=== PATIENT | male | born 1960 | race American Indian/Alaskan Native ===

== ENCOUNTER 2017-09-06 12:08 | Emergency (ER) | payer MEDICARE ==
[2017-09-06 13:08] VITALS: BP 116/63
[2017-09-06] MEDS ORDERED: DECADRON IM ONE (14:05)
[2017-09-06] MEDS ORDERED: PEPCID PO ONE (14:05)
[2017-09-06] MEDS ORDERED: BENADRYL PO ONE (14:05)
[2017-09-06] MEDS ORDERED: PERCOCET 5/325 PO ONE (14:06)
--- NOTE | 2017-09-06 14:47 | Emergency Department Report ---
ED Rash HPI - HPI Chief Complaint: Skin Rash Stated Complaint: BACK PAIN, BED BUGS Duration: 2 Days Location: Chest, Back, Abdomen, Upper Extremities, Lower Extremities Suspected Cause: Insect Rash Symptoms: Yes Itching, No Facial Swelling, No Tongue/Oral Swelling, No Breathing Difficulties, No Choking Sensation, No Wheezing/Dyspnea, No Peeling, No Blistering, No Fever, No Lightheaded, No Malaise, No Myalgias Severity: mild Other History: 56 year old male presents to ED with itching and bed bugs rash x1 -2 days. patient states he moved into a new place of residence yesterday and began itching. patient also states he has chronic lower back pain and normally takes percocet and states he would like a RX for percocet today. patient denies recent injury/trauma to back, urinary incontinence, saddle anesthesia or fevers. patient states this is same chronic back pain since 2002. patient is stable, neurologically intact and in no acute distress. ED Review of Systems ROS: Stated complaint: BACK PAIN, BED BUGS Other details as noted in HPI Constitutional: denies: chills, fever Eyes: denies: eye pain, eye discharge, vision change ENT: denies: ear pain, throat pain Respiratory: denies: cough, shortness of breath, wheezing Cardiovascular: denies: chest pain, palpitations Endocrine: no symptoms reported Gastrointestinal: denies: abdominal pain, nausea, diarrhea Genitourinary: denies: urgency, dysuria, frequency, discharge Musculoskeletal: back pain. denies: joint swelling, arthralgia Skin: rash, pruritus. denies: lesions Neurological: denies: headache, weakness, numbness, paresthesias, confusion, abnormal gait, vertigo Psychiatric: denies: anxiety, depression Hematological/Lymphatic: denies: easy bleeding, easy bruising ED Past Medical Hx - Past Medical History Hx Hypertension: No Hx Diabetes: No Hx GERD: Yes Hx Arthritis: Yes Hx Seizures: No Hx Psychiatric Treatment: Yes (Depression, ETOH/Drug rehab, anxiety) Hx Asthma: No Additional medical history: depression, drug/etoh rehab, anxiety - Surgical History Additional Surgical History: back surgery, 2 hernia surgeries, neck surgery. RIGHT SHOULDER SURGERY. MRI of the lumbar spine - Social History Smoking Status: Current Every Day Smoker Substance Use Type: Alcohol - Medications Home Medications: Home Medications Medication Instructions Recorded Confirmed Last Taken Type Gabapentin [Neurontin] 400 mg PO QHS 09/30/15 09/30/15 Unknown History HYDROcodone/APAP 10-325 [[place] 1 each PO Q6HR PRN #10 tablet 09/30/15 Unknown Rx 10-325 mg TAB] Hydroxyzine HCl 25 mg PO BID #10 tablet 09/06/17 Unknown Rx Triamcinolone 0.1% [Kenalog 0.1% 1 applic TP TID #1 tube 09/06/17 Unknown Rx CREAM] Rash Exam - Exam General: Vital signs noted. No distress. Alert and acting appropriately. HEENT: No Periorbital Edema, No Conjuctival Injection, No Tongue Edema, No Compromised Airway Lungs: Yes Good Air Exchange, No Wheezes, No Stridor, No Cough, No Labored Respirations, No Retractions, No Use of Accessory Muscles Heart: Yes Regular Skin: Yes Maculopapular Rash (rash consistent with bed bugs), Yes Excoriations Other: Positive: Neurologic Normal, Musculoskeletal Normal (no tenderness to lower back on palpation/examination) ED Course Vital Signs 09/06/17 13:02 Temperature 98.6 F Pulse Rate 78 Respiratory 20 Rate Blood Pressure 116/63 O2 Sat by Pulse 97 Oximetry ED Medical Decision Making - Medical Decision Making 56 year old male presents to ED with rash consistent with bed bugs. patient also states he has chronic back pain and has requested RX for percocet. patient has been advised that he will not be receiving an RX for percocet. patient agrees and understands to follow up with pain management clinic for narcotics. patient will be given RX for pruritis from bed bugs. patient is stable, neurologically intact and in no acute distress. Critical care attestation.: If time is entered above; I have spent that time in minutes in the direct care of this critically ill patient, excluding procedure time. ED Disposition Clinical Impression: Bed bug bite Qualifiers: Encounter type: initial encounter Qualified Code(s): W57.XXXA - Bitten or stung by nonvenomous insect and other nonvenomous arthropods, initial encounter Disposition: TO HOME OR SELFCARE Is pt being admited?: No Does the pt Need Aspirin: No Condition: Stable Instructions: Insect Bite or Sting (ED) Prescriptions: Hydroxyzine HCl 25 mg PO BID #10 tablet Triamcinolone 0.1% [Kenalog 0.1% CREAM] 1 applic TP TID #1 tube Referrals: PRIMARY CARE,MD [Primary Care Provider] - 3-5 Days
== END 2017-09-06 14:54 | disposition home or self-care (01) ==
LOC: ED 12:08
DX: L29.9 Pruritus, unspecified (principal); R21 Rash and other nonspecific skin eruption; M54.5 Low back pain; W57.XXXA Bitten or stung by nonvenomous insect and other nonvenomous arthropods, initial encounter; Y93.89 Activity, other specified; Y92.89 Other specified places as the place of occurrence of the external cause; Y99.8 Other external cause status
CPT/HCPCS: 96372; 99282; J1100

== ENCOUNTER 2018-06-20 07:18 | Emergency (ER) | payer MEDICARE ==
[2018-06-20 08:41] LABS: Basophils % (Auto) 0.4 % (0.0-1.8); Eosinophils % (Auto) 0.2 % (0.0-4.3); Hematocrit 44.9 % (35.5-45.6); Hemoglobin 15.2 gm/dl (11.8-15.2); Lymphocytes % (Auto) 13.6 % (13.4-35.0); Mean Corpuscular HGB Conc 34 % (32-34); Mean Corpuscular Hemoglobin 31 pg (28-32); Mean Corpuscular Volume 90 fl (84-94); Monocytes # (Auto) 0.5 K/mm3 (0.0-0.8); Platelet Count 236 K/mm3 (140-440); Red Blood Count 4.97 M/mm3 (3.65-5.03); Red Cell Distribution Width 15.4 % (13.2-15.2)
[2018-06-20 08:57] LABS: BUN/Creatinine Ratio 16; Blood Urea Nitrogen 14 mg/dL (9-20); Calcium 9.4 mg/dL (8.4-10.2); Hemolysis Index 4
[2018-06-20 09:17] LABS: Bilirubin,Urine NEG (Negative); Blood,Urine SM (Negative); Color,Urine Yellow (Yellow); Mucus,Urine FEW /HPF
[2018-06-20 09:24] LABS: Amphetamine Screen,Urine PRESUMPTIVE NEGATIVE; Benzodiazepines Screen,Urine PRESUMPTIVE NEGATIVE; Cannabinoid Screen,Urine PRESUMPTIVE NEGATIVE; Methadone Screen,Urine PRESUMPTIVE NEGATIVE; Opiate Screen,Urine PRESUMPTIVE NEGATIVE
[2018-06-20 09:36] LABS: Cocaine Screen,Urine PRESUMPTIVE POSITIVE
[2018-06-20 11:47] VITALS: BP 111/72
--- NOTE | 2018-06-20 12:56 | Emergency Department Report ---
ED Psych HPI - General Chief Complaint: Psych Stated Complaint: DRUG/ALCOHOL Time Seen by Provider: 06/20/18 11:06 Source: patient, EMS Mode of arrival: Ambulatory - History of Present Illness Initial Comments: 57-year-old man with chronic history of cocaine and ethanol abuse, with prior evaluation for same as far back as 2013, reports that he has been active user for the past couple of years, although he has been in detox previously. He is not currently under treatment, has no routine health counselors, and has used crack cocaine by smoking as recently as last evening, 12 hours earlier, and drink alcohol, as many as 12 25 ounce bottles of beer in a day, with last drink 8 hours prior to arrival. He requests admission for detox. Symptoms are vague , but he appears to have chronic depression, reports feeling desperate, and reports feeling suicidal, but on further questioning, this appears to be a generalized sense of hopelessness over his current situation, patient has not actively made any plans and does not wish to at this time. He does report having a made attempts in the past, and it previously thought that he might jump in front of a train, but has not made any efforts or plans to do so at this time. Patient's past medical history significant for hypertension, above-mentioned substance abuse, with cocaine and alcohol, tobacco, but denies other recreational drugs, denies intravenous drug use, and he takes oxycodone for chronic back pain, for which she is disabled, but denies abusing medications, and takes his medicine as prescribed, under refills by pain customer manager on monthly basis. Review of prescription drug database confirms this. Other history significant for GERD. Patient's only other significant complaint is hunger, reporting that he has not had a steady meal in several days. - Related Data Home Medications Medication Instructions Recorded Confirmed Last Taken Gabapentin [Neurontin] 400 mg PO QHS 09/30/15 09/30/15 Unknown Previous Rx's Medication Instructions Recorded Last Taken Type HYDROcodone/APAP 10-325 [[place] 1 each PO Q6HR PRN #10 tablet 09/30/15 Unknown Rx 10-325 mg TAB] Triamcinolone 0.1% [Kenalog 0.1% 1 applic TP TID #1 tube 09/06/17 Unknown Rx CREAM] hydrOXYzine HCl [Hydroxyzine HCl] 25 mg PO BID #10 tablet 09/06/17 Unknown Rx Allergies Allergy/AdvReac Type Severity Reaction Status Date / Time No Known Allergies Allergy Verified 06/20/18 07:36 ED Review of Systems ROS: Stated complaint: DRUG/ALCOHOL Other details as noted in HPI Constitutional: denies: chills, diaphoresis, fever Eyes: denies: vision change ENT: denies: throat pain Respiratory: denies: cough, shortness of breath Cardiovascular: denies: chest pain Endocrine: increased hunger. denies: excessive sweating, flushing, intolerance to cold, increased thirst, increased urine Gastrointestinal: denies: abdominal pain, nausea, vomiting, diarrhea Genitourinary: denies: urgency, dysuria Musculoskeletal: back pain (chronic,lumbar back) Skin: denies: rash, lesions Neurological: denies: headache, weakness, numbness, paresthesias, confusion, abnormal gait, vertigo Psychiatric: anxiety, suicidal thoughts (reports to staff, but mostly depression and hopelessness over current situation on my questioning, no active suicidal thoughts, no plans, no actions; no homocidal ideation). denies: auditory hallucinations, visual hallucinations ED Past Medical Hx - Past Medical History Previous Medical History?: Yes Hx Hypertension: No Hx Diabetes: No Hx GERD: Yes Hx Arthritis: Yes Hx Seizures: No Hx Psychiatric Treatment: Yes (Depression, ETOH/Drug rehab, anxiety) Hx Asthma: No Additional medical history: depression, drug/etoh rehab, anxiety - Surgical History Past Surgical History?: Yes Additional Surgical History: back surgery, 2 hernia surgeries, neck surgery. RIGHT SHOULDER SURGERY. MRI of the lumbar spine - Social History Smoking Status: Current Every Day Smoker Substance Use Type: Alcohol, Cocaine - Medications Home Medications: Home Medications Medication Instructions Recorded Confirmed Last Taken Type Gabapentin [Neurontin] 400 mg PO QHS 09/30/15 09/30/15 Unknown History HYDROcodone/APAP 10-325 [[place] 1 each PO Q6HR PRN #10 tablet 09/30/15 Unknown Rx 10-325 mg TAB] Triamcinolone 0.1% [Kenalog 0.1% 1 applic TP TID #1 tube 09/06/17 Unknown Rx CREAM] hydrOXYzine HCl [Hydroxyzine HCl] 25 mg PO BID #10 tablet 09/06/17 Unknown Rx ED Physical Exam - General Limitations: No Limitations General appearance: alert, in no apparent distress, anxious - Eye Eye exam: Present: normal appearance, PERRL, EOMI (no nystagmus) - ENT ENT exam: Present: normal exam, mucous membranes dry - Neck Neck exam: Present: normal inspection, full ROM. Absent: tenderness - Respiratory Respiratory exam: Present: normal lung sounds bilaterally. Absent: respiratory distress, wheezes, rales, rhonchi - Cardiovascular Cardiovascular Exam: Present: regular rate, normal heart sounds - GI/Abdominal GI/Abdominal exam: Present: soft, normal bowel sounds. Absent: tenderness, guarding, rebound - Rectal Rectal exam: Present: deferred - Extremities Exam Extremities exam: Present: normal inspection, full ROM. Absent: tenderness - Back Exam Back exam: Present: tenderness (bilateral lumbar myofascial soft tissue, reports chronic/unchanged) - Neurological Exam Neurological exam: Present: alert, oriented X3, CN II-XII intact. Absent: motor sensory deficit - Psychiatric Psychiatric exam: Present: depressed, anxious, suicidal ideation (vague, doubtful on questioning, probably a generalized sign of depression) - Skin Skin exam: Present: warm, dry, intact ED Course Vital Signs 06/20/18 06/20/18 07:27 11:47 Temperature 36.8 C 36.5 C Pulse Rate 119 H 88 Respiratory 18 18 Rate Blood Pressure 134/85 Blood Pressure 111/72 [Left] O2 Sat by Pulse 96 99 Oximetry - Reevaluation(s) Reevaluation #1: 06/20/18 13:00 Stable examination, fed a meal, tolerated well, resting fairly comfortably, request medication for GERD Reevaluation #2: 06/20/18 13:55 Patient stable on recheck, feeling improved, neurologically intact, no tremor, no agitation, EKG and labs reviewed, these are negative despite incorrect computer reading of possible ST elevation, but this isn't his. His reading. Patient has no chest pain at this time, lungs are clear, heart is normal, he is neurologically stable, and no signs of instability from alcohol or cocaine withdrawal. He is stable for discharge to care of detox treatment at [facility], and I discussed findings with Elba. ED Medical Decision Making - Lab Data Result diagrams: 06/20/18 08:21 06/20/18 08:21 - EKG Data -: EKG Interpreted by Me EKG shows normal: sinus rhythm (101 bpm), axis (normal QRS axis, 71), intervals (normal RI interval, normal QRS interval, QT interval normal at 439 ms corrected.), QRS complexes (normal), ST-T waves (normal ST segments, incorrectly interpreted by computer as anterior injury and elevation, but I disagree, and this is unchanged from previous tracing. 09/30/2015 tracing) Rate: tachycardia (borderline) - EKG Data When compared to previous EKG there are: no significant change - Medical Decision Making Patient is requesting detox, last drink was 8 hours, alcohol is negative, patient is positive for cocaine, laboratory evaluation physical examination are both stable, and patient may be discharged for admission into detox. Critical Care Time: No Critical care attestation.: If time is entered above; I have spent that time in minutes in the direct care of this critically ill patient, excluding procedure time. ED Disposition Clinical Impression: Alcohol abuse, Cocaine abuse Disposition: DC-01 TO HOME OR SELFCARE Is pt being admited?: No Does the pt Need Aspirin: No Condition: Stable Additional Instructions: You are stable for discharge, and you are being discharged from the emergency facility, and will be admitted from [facility] for [facility]. Referrals: PRIMARY CAREMD [Primary Care Provider] - 3-5 Days Time of Disposition: 13:58
== END 2018-06-20 16:53 | disposition home or self-care (01) ==
LOC: ED 07:18
DX: F14.10 Cocaine abuse, uncomplicated (principal); F10.10 Alcohol abuse, uncomplicated; K21.9 Gastro-esophageal reflux disease without esophagitis; M19.90 Unspecified osteoarthritis, unspecified site; F32.9 Major depressive disorder, single episode, unspecified; F41.9 Anxiety disorder, unspecified; F17.200 Nicotine dependence, unspecified, uncomplicated
CPT/HCPCS: 36415; 80048; 80307; 81001; 85025; 93005; 93010; 99284; G0480; 80320

== ENCOUNTER 2018-06-20 16:44 | Inpatient (IN) | payer MEDICARE ==
[2018-06-20] MEDS ORDERED: ROBAXIN PO PRN (17:06)
[2018-06-20] MEDS ORDERED: ATIVAN IV ONE (17:06)
[2018-06-20] MEDS ORDERED: BENTYL PO PRN (17:06)
--- NOTE | 2018-06-20 17:06 | History and Physical Report ---
History of Present Illness Chief complaint: I need some help History of present illness: 57 YO Male with Cocaine Dependence, ETOH Dependence, GERD, OA, Depression, Nicotine Dependence admitted directly to [facility]. Pt states that he has experienced agitation, nausea, abdominal cramping, insomnia, diminished appetite, tremors, anxiety, muscle aches, multiple episodes of nausea. Pt states that his last use of alcohol was 8 hours prior to admission, and that his last use of cocaine was 12 hours prior to presentation. Pt seen and evaluated and found to have Alcohol Withdrawl Syndrome, as well as Cocaine Withdrawl Syndrome. Pt admitted to [facility] for medical stabilization. Past History Past Medical History: arthritis, GERD Past Surgical History: hernia repair, Other (back surgery, 2 hernia surgeries, neck surgery. RIGHT SHOULDER SURGERY. MRI of the lumbar spine) Social history: single, smoking, alcohol abuse Family history: no significant family history (reviewed) Medications and Allergies Allergies Allergy/AdvReac Type Severity Reaction Status Date / Time No Known Allergies Allergy Verified 06/20/18 07:36 Home Medications Medication Instructions Recorded Confirmed Last Taken Type Gabapentin [Neurontin] 400 mg PO QHS 09/30/15 09/30/15 Unknown History HYDROcodone/APAP 10-325 [[place] 1 each PO Q6HR PRN #10 tablet 09/30/15 Unknown Rx 10-325 mg TAB] Triamcinolone 0.1% [Kenalog 0.1% 1 applic TP TID #1 tube 09/06/17 Unknown Rx CREAM] hydrOXYzine HCl [Hydroxyzine HCl] 25 mg PO BID #10 tablet 09/06/17 Unknown Rx Review of Systems Constitutional: no weight loss, no weight gain, no fever, no chills Ears, nose, mouth and throat: no ear pain, no ear discharge, no tinnitis, no decreased hearing, no nose pain, no nasal congestion Cardiovascular: no chest pain, no orthopnea, no palpitations, no rapid/ irregular heart beat, no edema, no syncope Respiratory: no cough, no cough with sputum, no excessive sputum, no hemoptysis , no shortness of breath Gastrointestinal: nausea, no vomiting, no diarrhea, no constipation, no change in bowel habits, no BRBPR, no melena, no hematochezia Genitourinary Male: no hematuria, no flank pain, no discharge, no urinary frequency, no urinary hesitancy, no nocturia Rectal: no pain, no incontinence, no bleeding, no itching Musculoskeletal: no neck stiffness, no neck pain, no shooting arm pain, no arm numbness/tingling, no low back pain, no shooting leg pain, no leg numbness/ tingling Integumentary: no rash, no pruritis, no redness, no sores, no wounds Neurological: no head injury, no transient paralysis, no paralysis, no weakness , no parathesias, no numbness, no tingling, no seizures, no syncope Psychiatric: anxiety, insomnia, depression, anxiety attacks, irritability Endocrine: no cold intolerance, no heat intolerance, no polyphagia, no excessive thirst, no polydipsia, no polyuria, no nocturia Hematologic/Lymphatic: no easy bruising, no easy bleeding, no lymphadenopathy, no lymphedema Allergic/Immunologic: no urticaria, no allergic rhinitis, no wheezing, no persistent infections, no anaphylaxis, no angioedema Exam - Constitutional General appearance: Present: mild distress - EENT Eyes: Present: PERRL ENT: hearing intact, clear oral mucosa - Neck Neck: Present: supple, normal ROM - Respiratory Respiratory effort: normal Respiratory: bilateral: CTA - Cardiovascular Heart Sounds: Present: S1 & S2. Absent: rub, click - Extremities Extremities: pulses symmetrical, No edema Peripheral Pulses: within normal limits - Abdominal General gastrointestinal: Present: soft, non-tender, non-distended, normal bowel sounds Male genitourinary: Present: normal - Integumentary Integumentary: Present: clear, warm, dry - Musculoskeletal Musculoskeletal: gait normal, strength equal bilaterally - Psychiatric Psychiatric: appropriate mood/affect, intact judgment & insight - Neurologic Neurologic: CNII-XII intact, moves all extremities Assessment and Plan - Patient Problems (1) Alcohol withdrawal syndrome Current Visit: Yes Status: Acute Plan to address problem: Admit to [facility]: Thiamine, folic Acid, Multivitamin, antiemetic therapy, IVF resuscitation, diet as tolerated. (2) Cocaine dependence with withdrawal Current Visit: Yes Status: Acute Plan to address problem: supportive care, anti emetic therapy, monitor BP q shift, (3) Nicotine dependence with withdrawal Current Visit: Yes Status: Acute Qualifiers: Nicotine product type: cigarettes Qualified Code(s): F17.213 - Nicotine dependence, cigarettes, with withdrawal Plan to address problem: smoking cessation counseling, supportive care. (4) DVT prophylaxis Current Visit: Yes Status: Acute Plan to address problem: SCD to BLE while in bed.
[2018-06-20 19:09] LABS: Hematocrit 45.4 % (35.5-45.6); Mean Corpuscular HGB Conc 33 % (32-34); Mean Corpuscular Hemoglobin 30 pg (28-32); Mean Corpuscular Volume 92 fl (84-94); Platelet Count 239 K/mm3 (140-440); Red Blood Count 4.93 M/mm3 (3.65-5.03); Red Cell Distribution Width 15.6 % (13.2-15.2)
[2018-06-20] MEDS: LIBRIUM PO SCH ×2 (19:26→23:21)
[2018-06-20 19:29] LABS: Alanine Aminotransferase 6 units/L (7-56); Albumin 4.4 g/dL (3.9-5); BUN/Creatinine Ratio 21; Blood Urea Nitrogen 21 mg/dL (9-20); Calcium 9.6 mg/dL (8.4-10.2); Hemolysis Index 7
[2018-06-20] MEDS: NEURONTIN PO SCH (23:21)
[2018-06-20] MEDS: DESYREL PO SCH (23:22)
[2018-06-20] MEDS: ATARAX PO SCH (23:22)
[2018-06-21 00:36] LABS: Bilirubin,Urine NEG (Negative); Blood,Urine SM (Negative); Color,Urine Yellow (Yellow); Mucus,Urine FEW /HPF
[2018-06-21] MEDS: KENALOG TP SCH ×3 (08:00→21:23)
[2018-06-21] MEDS: LIBRIUM PO SCH ×2 (08:25→13:02)
[2018-06-21] MEDS: FOLVITE PO SCH (10:32)
[2018-06-21] MEDS: THERAGRAN Tab PO SCH (10:32)
[2018-06-21] MEDS: VITAMIN B-1 PO SCH (10:32)
[2018-06-21] MEDS: ATARAX PO SCH ×2 (10:32→21:22)
--- NOTE | 2018-06-21 14:01 | Progress Note ---
Assessment and Plan Assessment and plan: 57 YO Male with Cocaine Dependence, ETOH Dependence, GERD, OA, Depression, Nicotine Dependence admitted directly to [facility]. Pt states that he has experienced agitation, nausea, abdominal cramping, insomnia, diminished appetite, tremors, anxiety, muscle aches, multiple episodes of nausea. Pt states that his last use of alcohol was 8 hours prior to admission, and that his last use of cocaine was 12 hours prior to presentation. Pt seen and evaluated and found to have Alcohol Withdrawl Syndrome, as well as Cocaine Withdrawl Syndrome. Pt admitted to [facility] for medical stabilization. Past History Past Medical History: arthritis, GERD (1) Alcohol withdrawal syndrome Current Visit: Yes Status: Acute Plan to address problem: Admit to [facility]: Thiamine, folic Acid, Multivitamin, antiemetic therapy, IVF resuscitation, diet as tolerated. (2) Cocaine dependence with withdrawal Current Visit: Yes Status: Acute Plan to address problem: supportive care, anti emetic therapy, monitor BP q shift, (3) Nicotine dependence with withdrawal Current Visit: Yes Status: Acute Qualifiers: Nicotine product type: cigarettes Qualified Code(s): F17.213 - Nicotine dependence, cigarettes, with withdrawal Plan to address problem: smoking cessation counseling, supportive care. (4) DVT prophylaxis Current Visit: Yes Status: Acute Plan to address problem: SCD to BLE while in bed. Hospitalist Physical - Constitutional Vitals: Temp Pulse Resp BP Pulse Ox 20 06/21/18 09:23 General appearance: Present: mild distress Results - Labs CBC & Chem 7: 06/20/18 18:39 06/20/18 18:39 Labs: Laboratory Last Values WBC 5.3 K/mm3 (4.5-11.0) 06/20/18 18:39 RBC 4.93 M/mm3 (3.65-5.03) 06/20/18 18:39 Hgb 15.0 gm/dl (11.8-15.2) 06/20/18 18:39 Hct 45.4 % (35.5-45.6) 06/20/18 18:39 MCV 92 fl (84-94) 06/20/18 18:39 MCH 30 pg (28-32) 06/20/18 18:39 MCHC 33 % (32-34) 06/20/18 18:39 RDW 15.6 % (13.2-15.2) H 06/20/18 18:39 Plt Count 239 K/mm3 (140-440) 06/20/18 18:39 Sodium 142 mmol/L (137-145) 06/20/18 18:39 Potassium 3.8 mmol/L (3.6-5.0) 06/20/18 18:39 Chloride 99.8 mmol/L (98-107) 06/20/18 18:39 Carbon Dioxide 24 mmol/L (22-30) 06/20/18 18:39 Anion Gap 22 mmol/L 06/20/18 18:39 BUN 21 mg/dL (9-20) H 06/20/18 18:39 Creatinine 1.0 mg/dL (0.8-1.5) 06/20/18 18:39 Estimated GFR > 60 ml/min 06/20/18 18:39 BUN/Creatinine Ratio 21 % 06/20/18 18:39 Glucose 92 mg/dL (75-100) 06/20/18 18:39 Calcium 9.6 mg/dL (8.4-10.2) 06/20/18 18:39 Total Bilirubin 0.60 mg/dL (0.1-1.2) 06/20/18 18:39 AST 16 units/L (5-40) 06/20/18 18:39 ALT 6 units/L (7-56) L 06/20/18 18:39 Alkaline Phosphatase 58 units/L (35-129) 06/20/18 18:39 Total Protein 7.1 g/dL (6.3-8.2) 06/20/18 18:39 Albumin 4.4 g/dL (3.9-5) 06/20/18 18:39 Albumin/Globulin Ratio 1.6 % 06/20/18 18:39 Urine Color Yellow (Yellow) 06/20/18 23:00 Urine Turbidity Slightly-cloudy (Clear) 06/20/18 23:00 Urine pH 5.0 (5.0-7.0) 06/20/18 23:00 Ur Specific [place] 1.031 (1.003-1.030) H 06/20/18 23:00 Urine Protein 30 mg/dl mg/dL (Negative) 06/20/18 23:00 Urine Glucose (UA) Neg mg/dL (Negative) 06/20/18 23:00 Urine Ketones Tr mg/dL (Negative) 06/20/18 23:00 Urine Blood Sm (Negative) 06/20/18 23:00 Urine Nitrite Neg (Negative) 06/20/18 23:00 Urine Bilirubin Neg (Negative) 06/20/18 23:00 Urine Urobilinogen 2.0 mg/dL (<2.0) 06/20/18 23:00 Ur Leukocyte Esterase Neg (Negative) 06/20/18 23:00 Urine WBC (Auto) 3.0 /HPF (0.0-6.0) 06/20/18 23:00 Urine RBC (Auto) 4.0 /HPF (0.0-6.0) 06/20/18 23:00 U Epithel Cells (Auto) < 1.0 /HPF (0-13.0) 06/20/18 23:00 Urine Mucus Few /HPF 06/20/18 23:00 Plasma/Serum Alcohol < 0.01 % (0-0.07) 06/20/18 18:39
[2018-06-21] MEDS: NEURONTIN PO SCH (21:22)
[2018-06-21] MEDS: DESYREL PO SCH (21:22)
[2018-06-22] MEDS: KENALOG TP SCH ×3 (08:24→21:35)
[2018-06-22] MEDS: FOLVITE PO SCH (09:36)
[2018-06-22] MEDS: THERAGRAN Tab PO SCH (09:36)
--- NOTE | 2018-06-22 09:36 | Progress Note ---
Hospitalist Physical - Constitutional Vitals: Temp Pulse Resp BP Pulse Ox 97.6 F 72 20 95/61 95 06/22/18 04:00 06/22/18 04:00 06/22/18 08:31 06/22/18 04:30 06/22/18 04:00 General appearance: Present: mild distress Results - Labs CBC & Chem 7: 06/20/18 18:39 08 18:39 Labs: Laboratory Last Values WBC 5.3 K/mm3 (4.5-11.0) 06/20/18 18:39 RBC 4.93 M/mm3 (3.65-5.03) 06/20/18 18:39 Hgb 15.0 gm/dl (11.8-15.2) 06/20/18 18:39 Hct 45.4 % (35.5-45.6) 06/20/18 18:39 MCV 92 fl (84-94) 06/20/18 18:39 MCH 30 pg (28-32) 06/20/18 18:39 MCHC 33 % (32-34) 06/20/18 18:39 RDW 15.6 % (13.2-15.2) H 06/20/18 18:39 Plt Count 239 K/mm3 (140-440) 06/20/18 18:39 Sodium 142 mmol/L (137-145) 06/20/18 18:39 Potassium 3.8 mmol/L (3.6-5.0) 06/20/18 18:39 Chloride 99.8 mmol/L (98-107) 06/20/18 18:39 Carbon Dioxide 24 mmol/L (22-30) 06/20/18 18:39 Anion Gap 22 mmol/L 06/20/18 18:39 BUN 21 mg/dL (9-20) H 06/20/18 18:39 Creatinine 1.0 mg/dL (0.8-1.5) 06/20/18 18:39 Estimated GFR > 60 ml/min 06/20/18 18:39 BUN/Creatinine Ratio 21 % 06/20/18 18:39 Glucose 92 mg/dL (75-100) 06/20/18 18:39 Calcium 9.6 mg/dL (8.4-10.2) 06/20/18 18:39 Total Bilirubin 0.60 mg/dL (0.1-1.2) 06/20/18 18:39 AST 16 units/L (5-40) 06/20/18 18:39 ALT 6 units/L (7-56) L 06/20/18 18:39 Alkaline Phosphatase 58 units/L (35-129) 06/20/18 18:39 Total Protein 7.1 g/dL (6.3-8.2) 06/20/18 18:39 Albumin 4.4 g/dL (3.9-5) 06/20/18 18:39 Albumin/Globulin Ratio 1.6 % 06/20/18 18:39 Urine Color Yellow (Yellow) 06/20/18 23:00 Urine Turbidity Slightly-cloudy (Clear) 06/20/18 23:00 Urine pH 5.0 (5.0-7.0) 06/20/18 23:00 Ur Specific [place] 1.031 (1.003-1.030) H 06/20/18 23:00 Urine Protein 30 mg/dl mg/dL (Negative) 06/20/18 23:00 Urine Glucose (UA) Neg mg/dL (Negative) 06/20/18 23:00 Urine Ketones Tr mg/dL (Negative) 06/20/18 23:00 Urine Blood Sm (Negative) 06/20/18 23:00 Urine Nitrite Neg (Negative) 06/20/18 23:00 Urine Bilirubin Neg (Negative) 06/20/18 23:00 Urine Urobilinogen 2.0 mg/dL (<2.0) 06/20/18 23:00 Ur Leukocyte Esterase Neg (Negative) 06/20/18 23:00 Urine WBC (Auto) 3.0 /HPF (0.0-6.0) 06/20/18 23:00 Urine RBC (Auto) 4.0 /HPF (0.0-6.0) 06/20/18 23:00 U Epithel Cells (Auto) < 1.0 /HPF (0-13.0) 06/20/18 23:00 Urine Mucus Few /HPF 06/20/18 23:00 Plasma/Serum Alcohol < 0.01 % (0-0.07) 06/20/18 18:39
[2018-06-22] MEDS: VITAMIN B-1 PO SCH (09:37)
[2018-06-22] MEDS: ATARAX PO SCH ×2 (09:37→21:35)
[2018-06-22] MEDS: NACL 0.9% 1000 ML 1,000 ML IV SCH (14:15)
[2018-06-22] MEDS: DESYREL PO SCH (21:35)
[2018-06-22] MEDS: NEURONTIN PO SCH (21:35)
[2018-06-23 05:55] LABS: Basophils % (Auto) 0.6 % (0.0-1.8); Eosinophils # (Auto) 0.1 K/mm3 (0.0-0.4); Eosinophils % (Auto) 1.4 % (0.0-4.3); Hematocrit 40.8 % (35.5-45.6); Hemoglobin 13.5 gm/dl (11.8-15.2); Lymphocytes # (Auto) 1.9 K/mm3 (1.2-5.4); Lymphocytes % (Auto) 45.7 % (13.4-35.0); Mean Corpuscular HGB Conc 33 % (32-34); Mean Corpuscular Hemoglobin 30 pg (28-32); Mean Corpuscular Volume 91 fl (84-94); Monocytes # (Auto) 0.4 K/mm3 (0.0-0.8); Monocytes % (Auto) 9.4 % (0.0-7.3); Platelet Count 220 K/mm3 (140-440); Red Blood Count 4.46 M/mm3 (3.65-5.03)
[2018-06-23 06:01] LABS: BUN/Creatinine Ratio 18; Blood Urea Nitrogen 14 mg/dL (9-20); Calcium 8.5 mg/dL (8.4-10.2); Hemolysis Index 9
--- NOTE | 2018-06-23 09:55 | Progress Note ---
Hospitalist Physical - Constitutional Vitals: Temp Pulse Resp BP Pulse Ox 97.7 F 78 19 120/82 98 06/23/18 08:23 06/23/18 08:23 06/23/18 08:23 06/23/18 08:23 06/23/18 08:23 General appearance: Present: mild distress Results - Labs CBC & Chem 7: 06/23/18 04:58 06/23/18 04:58 Labs: Laboratory Last Values WBC 4.1 K/mm3 (4.5-11.0) L 06/23/18 04:58 RBC 4.46 M/mm3 (3.65-5.03) 06/23/18 04:58 Hgb 13.5 gm/dl (11.8-15.2) 06/23/18 04:58 Hct 40.8 % (35.5-45.6) 06/23/18 04:58 MCV 91 fl (84-94) 06/23/18 04:58 MCH 30 pg (28-32) 06/23/18 04:58 MCHC 33 % (32-34) 06/23/18 04:58 RDW 15.0 % (13.2-15.2) 06/23/18 04:58 Plt Count 220 K/mm3 (140-440) 06/23/18 04:58 Lymph % (Auto) 45.7 % (13.4-35.0) H 06/23/18 04:58 [place] % (Auto) 9.4 % (0.0-7.3) H 06/23/18 04:58 Eos % (Auto) 1.4 % (0.0-4.3) 06/23/18 04:58 Baso % (Auto) 0.6 % (0.0-1.8) 06/23/18 04:58 Lymph # 1.9 K/mm3 (1.2-5.4) 06/23/18 04:58 [place] # 0.4 K/mm3 (0.0-0.8) 06/23/18 04:58 Eos # 0.1 K/mm3 (0.0-0.4) 06/23/18 04:58 Baso # 0.0 K/mm3 (0.0-0.1) 06/23/18 04:58 Seg Neutrophils % 42.9 % (40.0-70.0) 06/23/18 04:58 Seg Neutrophils # 1.8 K/mm3 (1.8-7.7) 06/23/18 04:58 Sodium 140 mmol/L (137-145) 06/23/18 04:58 Potassium 3.8 mmol/L (3.6-5.0) 06/23/18 04:58 Chloride 102.2 mmol/L (98-107) 06/23/18 04:58 Carbon Dioxide 25 mmol/L (22-30) 06/23/18 04:58 Anion Gap 17 mmol/L 06/23/18 04:58 BUN 14 mg/dL (9-20) 06/23/18 04:58 Creatinine 0.8 mg/dL (0.8-1.5) 06/23/18 04:58 Estimated GFR > 60 ml/min 06/23/18 04:58 BUN/Creatinine Ratio 18 % 06/23/18 04:58 Glucose 92 mg/dL (75-100) 06/23/18 04:58 Calcium 8.5 mg/dL (8.4-10.2) 06/23/18 04:58 Phosphorus 4.10 mg/dL (2.5-4.5) 06/23/18 04:58 Magnesium 1.80 mg/dL (1.7-2.3) 06/23/18 04:58 Total Bilirubin 0.60 mg/dL (0.1-1.2) 06/20/18 18:39 AST 16 units/L (5-40) 06/20/18 18:39 ALT 6 units/L (7-56) L 06/20/18 18:39 Alkaline Phosphatase 58 units/L (35-129) 06/20/18 18:39 Total Protein 7.1 g/dL (6.3-8.2) 06/20/18 18:39 Albumin 4.4 g/dL (3.9-5) 06/20/18 18:39 Albumin/Globulin Ratio 1.6 % 06/20/18 18:39 Urine Color Yellow (Yellow) 06/20/18 23:00 Urine Turbidity Slightly-cloudy (Clear) 06/20/18 23:00 Urine pH 5.0 (5.0-7.0) 06/20/18 23:00 Ur Specific [place] 1.031 (1.003-1.030) H 06/20/18 23:00 Urine Protein 30 mg/dl mg/dL (Negative) 06/20/18 23:00 Urine Glucose (UA) Neg mg/dL (Negative) 06/20/18 23:00 Urine Ketones Tr mg/dL (Negative) 06/20/18 23:00 Urine Blood Sm (Negative) 06/20/18 23:00 Urine Nitrite Neg (Negative) 06/20/18 23:00 Urine Bilirubin Neg (Negative) 06/20/18 23:00 Urine Urobilinogen 2.0 mg/dL (<2.0) 06/20/18 23:00 Ur Leukocyte Esterase Neg (Negative) 06/20/18 23:00 Urine WBC (Auto) 3.0 /HPF (0.0-6.0) 06/20/18 23:00 Urine RBC (Auto) 4.0 /HPF (0.0-6.0) 06/20/18 23:00 U Epithel Cells (Auto) < 1.0 /HPF (0-13.0) 06/20/18 23:00 Urine Mucus Few /HPF 06/20/18 23:00 Plasma/Serum Alcohol < 0.01 % (0-0.07) 06/20/18 18:39
[2018-06-23] MEDS ORDERED: PROTONIX PO SCH (10:00)
[2018-06-23] MEDS: THERAGRAN Tab PO SCH (10:09)
[2018-06-23] MEDS: VITAMIN B-1 PO SCH (10:09)
[2018-06-23] MEDS: KENALOG TP SCH ×3 (10:09→23:14)
[2018-06-23] MEDS: FOLVITE PO SCH (10:09)
[2018-06-23] MEDS: ATARAX PO SCH ×2 (10:09→22:34)
[2018-06-23] MEDS: NACL 0.9% 1000 ML 1,000 ML IV SCH (13:33)
[2018-06-23] MEDS: NEURONTIN PO SCH (22:34)
[2018-06-23] MEDS: DESYREL PO SCH (22:34)
[2018-06-24 00:43] VITALS: BP 112/72
--- NOTE | 2018-06-25 03:25 | Discharge Summary ---
Providers - Providers Date of Admission: 06/20/18 17:40 Attending physician: ANDERSON DELONG MD 06/22/18 13:17 psychiatry consult [Consult to Mental Health] [CONS] Routine Reason For Exam: depression/refferal to [facility] 30day program Place consult to:: Ruf[place] Notified:: [phone] Comment:: Pt. wants refferal to [facility] 30day [facility] Primary care physician: JESSIE DSOUZA MD Hospitalization Disposition: DC- LEFT AGAINST MED ADVICE Exam - Constitutional Vitals: Temp Pulse Resp BP Pulse Ox 98.3 F 81 20 112/72 96 06/24/18 00:06 06/24/18 00:06 06/24/18 00:06 06/24/18 00:06 06/24/18 00:06 Plan Follow up with: JESSIE DSOUZA MD [Primary Care Provider] - 7 Days
== END 2018-06-24 07:30 | disposition left against medical advice (07) | DRG 894 ==
LOC: 2B-ACE 16:44 → UNDOADMIN 16:44 → MSU 17:40
PROVIDERS: ADMIT Internal Medicine; ATTEND Internal Medicine
DX: F14.23 Cocaine dependence with withdrawal (principal); F10.239 Alcohol dependence with withdrawal, unspecified; K21.9 Gastro-esophageal reflux disease without esophagitis; M19.90 Unspecified osteoarthritis, unspecified site; F32.9 Major depressive disorder, single episode, unspecified; F17.213 Nicotine dependence, cigarettes, with withdrawal; Z71.6 Tobacco abuse counseling; Z79.899 Other long term (current) drug therapy
CPT/HCPCS: 36415; 80048; 80053; 80320; 81001; 83735; 84100; 85025; 85027; 99406; G0480; J7030

== ENCOUNTER 2018-06-28 14:49 | Emergency (ER) | payer MEDICARE ==
[2018-06-28 15:33] LABS: Bacteria,Urine 1+ /HPF (Negative); Bilirubin,Urine NEG (Negative); Blood,Urine SM (Negative); Color,Urine Amber (Yellow); Mucus,Urine 3+ /HPF
[2018-06-28 15:38] LABS: Basophils % (Auto) 0.5 % (0.0-1.8); Eosinophils % (Auto) 0.8 % (0.0-4.3); Hematocrit 48.4 % (35.5-45.6); Lymphocytes # (Auto) 1.6 K/mm3 (1.2-5.4); Lymphocytes % (Auto) 27.1 % (13.4-35.0); Mean Corpuscular HGB Conc 33 % (32-34); Mean Corpuscular Hemoglobin 30 pg (28-32); Mean Corpuscular Volume 92 fl (84-94); Monocytes # (Auto) 0.4 K/mm3 (0.0-0.8); Platelet Count 294 K/mm3 (140-440); Red Blood Count 5.26 M/mm3 (3.65-5.03); Red Cell Distribution Width 15.2 % (13.2-15.2)
--- NOTE | 2018-06-28 15:39 | Emergency Department Report ---
HPI - General Chief Complaint: Alcohol Time Seen by Provider: 06/28/18 15:27 - HPI HPI: Room 10 The patient is a 57-year-old male presenting with chief complaint of alcohol and crack abuse. The patient states he was here last week for detox from alcohol and crack but he signed himself out. The patient states after leaving the hospital again relapsed on crack cocaine and alcohol. Patient states he normally drinks approximately sixteen 25oz beers daily . He last consumed this morning at approximately 03:00. The patient states he presents again to the emergency department for help detoxing from alcohol and crack Location: Mental state Duration: [See above] Quality: [See above] Severity: Moderate Modifying factors: [see above] Context: [see above] Mode of transportation: [not driving] ED Past Medical Hx - Past Medical History Previous Medical History?: Yes Hx GERD: Yes Hx Arthritis: Yes Hx Psychiatric Treatment: Yes (Depression, ETOH/Drug rehab, anxiety) Additional medical history: depression, drug/etoh rehab, anxiety - Surgical History Past Surgical History?: Yes Additional Surgical History: back surgery, 2 hernia surgeries, neck surgery. RIGHT SHOULDER SURGERY - Family History Family history: no significant - Social History Smoking Status: Heavy Tobacco Smoker (2 packs daily) Substance Use Type: Alcohol (sixteen 25oz beers daily), Cocaine (crack) - Medications Home Medications: Home Medications Medication Instructions Recorded Confirmed Last Taken Type Gabapentin [Neurontin] 400 mg PO QHS 09/30/15 06/23/18 Unknown History HYDROcodone/APAP 10-325 [[place] 1 each PO Q6HR PRN #10 tablet 09/30/15 06/23/18 Unknown Rx 10-325 mg TAB] Triamcinolone 0.1% [Kenalog 0.1% 1 applic TP TID #1 tube 09/06/17 06/23/18 Unknown Rx CREAM] hydrOXYzine HCl [Hydroxyzine HCl] 25 mg PO BID #10 tablet 09/06/17 06/23/18 Unknown Rx levoFLOXacin [Levaquin TAB] 500 mg PO QDAY #7 tablet 06/28/18 Unknown Rx ED Review of Systems ROS: Stated complaint: DRUG/ALCOHOL Other details as noted in HPI Constitutional: no symptoms reported Eyes: denies: eye pain ENT: denies: throat pain Respiratory: no symptoms reported Cardiovascular: denies: chest pain Endocrine: no symptoms reported Gastrointestinal: denies: abdominal pain Genitourinary: denies: dysuria Neurological: denies: headache Physical Exam - Physical Exam Vital Signs: Vital Signs 06/28/18 15:03 Temperature 98.1 F Pulse Rate 55 L Respiratory 18 Rate Blood Pressure 121/75 O2 Sat by Pulse 98 Oximetry Physical Exam: GENERAL: The patient is well-developed well-nourished male lying on stretcher not appearing to be in acute distress. [] HEENT: Normocephalic. Atraumatic. Extraocular motions are intact. Patient has moist mucous membranes. NECK: Supple. Trachea midline CHEST/LUNGS: Clear to auscultation. There is no respiratory distress noted. HEART/CARDIOVASCULAR: Regular. There is no tachycardia. There is no gallop rub or murmur. ABDOMEN: Abdomen is soft, nontender. Patient has normal bowel sounds. There is no abdominal distention. SKIN: There is no rash. There is no edema. There is no diaphoresis. NEURO: The patient is awake, alert, and oriented. The patient is cooperative. The patient has normal speech MUSCULOSKELETAL:There is no evidence of acute injury. ED Course Vital Signs 06/28/18 15:03 Temperature 98.1 F Pulse Rate 55 L Respiratory 18 Rate Blood Pressure 121/75 O2 Sat by Pulse 98 Oximetry ED Medical Decision Making - Lab Data Result diagrams: 06/28/18 15:18 06/28/18 15:18 Laboratory Tests 06/28/18 06/28/18 06/28/18 15:18 15:18 15:18 WBC RBC Hgb Hct MCV MCH MCHC RDW Plt Count Lymph % (Auto) [place] % (Auto) Eos % (Auto) Baso % (Auto) Lymph # [place] # Eos # Baso # Seg Neutrophils % Seg Neutrophils # Sodium 141 Potassium 4.3 Chloride 99.4 Carbon Dioxide 28 Anion Gap 18 BUN 20 Creatinine 1.3 Estimated GFR > 60 BUN/Creatinine Ratio 15 Glucose 139 H Calcium 9.8 Urine Color Urine Turbidity Urine pH Ur Specific [place] Urine Protein Urine Glucose (UA) Urine Ketones Urine Blood Urine Nitrite Urine Bilirubin Urine Urobilinogen Ur Leukocyte Esterase Urine WBC (Auto) Urine RBC (Auto) Urine Bacteria (Auto) Urine Mucus Salicylates < 0.3 L Urine Opiates Screen Urine Methadone Screen Acetaminophen < 5.0 L Ur Barbiturates Screen Ur Phencyclidine Scrn Ur Amphetamines Screen U Benzodiazepines Scrn Urine Cocaine Screen U Marijuana (THC) Screen Drugs of Abuse Note Plasma/Serum Alcohol 06/28/18 06/28/18 06/28/18 15:18 15:18 Unknown WBC 5.8 RBC 5.26 H Hgb 16.0 H Hct 48.4 H MCV 92 MCH 30 MCHC 33 RDW 15.2 Plt Count 294 Lymph % (Auto) 27.1 [place] % (Auto) 7.0 Eos % (Auto) 0.8 Baso % (Auto) 0.5 Lymph # 1.6 [place] # 0.4 Eos # 0.0 Baso # 0.0 Seg Neutrophils % 64.6 Seg Neutrophils # 3.8 Sodium Potassium Chloride Carbon Dioxide Anion Gap BUN Creatinine Estimated GFR BUN/Creatinine Ratio Glucose Calcium Urine Color [place] Urine Turbidity Slightly-cloudy Urine pH 5.0 Ur Specific [place] 1.029 Urine Protein 100 mg/dl Urine Glucose (UA) Neg Urine Ketones Tr Urine Blood Sm Urine Nitrite Neg Urine Bilirubin Neg Urine Urobilinogen 4.0 Ur Leukocyte Esterase Neg Urine WBC (Auto) 7.0 H Urine RBC (Auto) 10.0 Urine Bacteria (Auto) 1+ Urine Mucus 3+ Salicylates Urine Opiates Screen Urine Methadone Screen Acetaminophen Ur Barbiturates Screen Ur Phencyclidine Scrn Ur Amphetamines Screen U Benzodiazepines Scrn Urine Cocaine Screen U Marijuana (THC) Screen Drugs of Abuse Note Plasma/Serum Alcohol < 0.01 06/28/18 Unknown WBC RBC Hgb Hct MCV MCH MCHC RDW Plt Count Lymph % (Auto) [place] % (Auto) Eos % (Auto) Baso % (Auto) Lymph # [place] # Eos # Baso # Seg Neutrophils % Seg Neutrophils # Sodium Potassium Chloride Carbon Dioxide Anion Gap BUN Creatinine Estimated GFR BUN/Creatinine Ratio Glucose Calcium Urine Color Urine Turbidity Urine pH Ur Specific [place] Urine Protein Urine Glucose (UA) Urine Ketones Urine Blood Urine Nitrite Urine Bilirubin Urine Urobilinogen Ur Leukocyte Esterase Urine WBC (Auto) Urine RBC (Auto) Urine Bacteria (Auto) Urine Mucus Salicylates Urine Opiates Screen Presumptive negative Urine Methadone Screen Presumptive negative Acetaminophen Ur Barbiturates Screen Presumptive negative Ur Phencyclidine Scrn Presumptive negative Ur Amphetamines Screen Presumptive negative U Benzodiazepines Scrn Presumptive positive Urine Cocaine Screen Presumptive positive U Marijuana (THC) Screen Presumptive positive Drugs of Abuse Note Disclamer Plasma/Serum Alcohol - Differential Diagnosis polysubstance abuse Critical care attestation.: If time is entered above; I have spent that time in minutes in the direct care of this critically ill patient, excluding procedure time. ED Disposition Clinical Impression: Cocaine abuse, Alcohol abuse, Pyuria Disposition: DC/TX-65 PSY HOSP/PSY UNIT Is pt being admited?: No Does the pt Need Aspirin: No Condition: Fair Additional Instructions: Return to the emergency department immediately should you develop worsening symptoms, fever, inability to tolerate food or liquid or any other concerns. Prescriptions: levoFLOXacin [Levaquin TAB] 500 mg PO QDAY #7 tablet Referrals: PRIMARY CARE, [Primary Care Provider] - 3-5 Days Time of Disposition: 16:35 (awaiting acceptance)
[2018-06-28 15:45] LABS: BUN/Creatinine Ratio 15; Blood Urea Nitrogen 20 mg/dL (9-20); Calcium 9.8 mg/dL (8.4-10.2); Hemolysis Index 20
[2018-06-28 15:48] LABS: Amphetamine Screen,Urine PRESUMPTIVE NEGATIVE; Methadone Screen,Urine PRESUMPTIVE NEGATIVE; Opiate Screen,Urine PRESUMPTIVE NEGATIVE
[2018-06-28 17:06] LABS: Benzodiazepines Screen,Urine PRESUMPTIVE POSITIVE; Cannabinoid Screen,Urine PRESUMPTIVE POSITIVE; Cocaine Screen,Urine PRESUMPTIVE POSITIVE
[2018-06-29 00:17] VITALS: BP 134/77
== END 2018-06-29 00:18 ==
LOC: ED 14:49
DX: N39.0 Urinary tract infection, site not specified (principal); F14.10 Cocaine abuse, uncomplicated; F10.10 Alcohol abuse, uncomplicated; K21.9 Gastro-esophageal reflux disease without esophagitis; M19.90 Unspecified osteoarthritis, unspecified site; F32.9 Major depressive disorder, single episode, unspecified; F41.9 Anxiety disorder, unspecified; F17.200 Nicotine dependence, unspecified, uncomplicated
CPT/HCPCS: 36415; 80048; 80307; 81001; 85025; 99285; G0480; 80320

== ENCOUNTER 2018-08-02 11:17 | Emergency (ER) | payer MEDICARE ==
[2018-08-02 12:01] LABS: Basophils % (Auto) 0.6 % (0.0-1.8); Hematocrit 48.5 % (35.5-45.6); Hemoglobin 15.8 gm/dl (11.8-15.2); Lymphocytes # (Auto) 1.2 K/mm3 (1.2-5.4); Mean Corpuscular HGB Conc 33 % (32-34); Mean Corpuscular Hemoglobin 30 pg (28-32); Mean Corpuscular Volume 93 fl (84-94); Monocytes # (Auto) 0.3 K/mm3 (0.0-0.8); Monocytes % (Auto) 10.3 % (0.0-7.3); Platelet Count 251 K/mm3 (140-440); Red Blood Count 5.25 M/mm3 (3.65-5.03); Red Cell Distribution Width 15.7 % (13.2-15.2)
[2018-08-02 12:18] LABS: BUN/Creatinine Ratio 12; Blood Urea Nitrogen 12 mg/dL (9-20); Calcium 9.7 mg/dL (8.4-10.2); Hemolysis Index 7
[2018-08-02] MEDS ORDERED: PEPCID PO ONE (12:18)
[2018-08-02] MEDS ORDERED: CARAFATE PO ONE (12:18)
[2018-08-02] MEDS ORDERED: ZOFRAN ODT PO ONE (12:18)
--- NOTE | 2018-08-02 12:19 | Emergency Department Report ---
ED General Adult HPI - General Chief complaint: Alcohol Stated complaint: DETOX Time Seen by Provider: 08/02/18 12:11 Source: patient, RN notes reviewed, old records reviewed Mode of arrival: Ambulatory Limitations: No Limitations - History of Present Illness Initial comments: This is a 57-year-old gentleman. Past medical history includes cocaine dependence, alcohol dependence, GERD, depression, nicotine dependence, chronic back pain. Patient presents to the ER after a recent cocaine and ethanol binge, requesting detox. He is not currently homicidal or suicidal, and he reports that he is not experiencing command hallucinations. He denies headache, neck pain, chest pain, abdominal pain, shortness of breath, irritative/obstructive urinary symptoms. He reports that he previously felt some nausea and some abdominal discomfort from nausea and vomiting, but this has since resolved. He has no irritative or obstructive urinary symptoms at this time. -: Gradual Consistency: constant Improves with: none Worsens with: none Associated Symptoms: malaise, nausea/vomiting. denies: confusion, chest pain, cough, diaphoresis, fever/chills, headaches, loss of appetite, rash, seizure, shortness of breath, syncope, weakness - Related Data Home Medications Medication Instructions Recorded Confirmed Last Taken Gabapentin [Neurontin] 400 mg PO QHS 09/30/15 06/23/18 Unknown Previous Rx's Medication Instructions Recorded Last Taken Type HYDROcodone/APAP 10-325 [[place] 1 each PO Q6HR PRN #10 tablet 09/30/15 Unknown Rx 10-325 mg TAB] Triamcinolone 0.1% [Kenalog 0.1% 1 applic TP TID #1 tube 09/06/17 Unknown Rx CREAM] hydrOXYzine HCl [Hydroxyzine HCl] 25 mg PO BID #10 tablet 09/06/17 Unknown Rx levoFLOXacin [Levaquin TAB] 500 mg PO QDAY #7 tablet 06/28/18 Unknown Rx Ondansetron [Zofran Odt] 4 mg PO Q8HR PRN #20 tab.rapdis 08/02/18 Unknown Rx chlordiazePOXIDE [Librium] 25 mg PO Q6H PRN #15 capsule 08/02/18 Unknown Rx Allergies Allergy/AdvReac Type Severity Reaction Status Date / Time No Known Allergies Allergy Verified 06/20/18 07:36 ED Review of Systems ROS: Stated complaint: DETOX Other details as noted in HPI Comment: All other systems reviewed and negative Psychiatric: denies: homicidal thoughts, suicidal thoughts ED Past Medical Hx - Past Medical History Previous Medical History?: Yes Hx Hypertension: No Hx Congestive Heart Failure: No Hx Diabetes: No Hx GERD: Yes Hx Arthritis: Yes Hx Seizures: No Hx Psychiatric Treatment: Yes (Depression, ETOH/Drug rehab, anxiety) Hx Asthma: No Hx COPD: No Additional medical history: depression, drug/etoh rehab, anxiety - Surgical History Past Surgical History?: Yes Additional Surgical History: back surgery, 2 hernia surgeries, neck surgery. RIGHT SHOULDER SURGERY, left foot surgery - Social History Smoking Status: Current Every Day Smoker Substance Use Type: Alcohol, Cocaine, Marijuana - Medications Home Medications: Home Medications Medication Instructions Recorded Confirmed Last Taken Type Gabapentin [Neurontin] 400 mg PO QHS 09/30/15 06/23/18 Unknown History HYDROcodone/APAP 10-325 [[place] 1 each PO Q6HR PRN #10 tablet 09/30/15 06/23/18 Unknown Rx 10-325 mg TAB] Triamcinolone 0.1% [Kenalog 0.1% 1 applic TP TID #1 tube 09/06/17 06/23/18 Unknown Rx CREAM] hydrOXYzine HCl [Hydroxyzine HCl] 25 mg PO BID #10 tablet 09/06/17 06/23/18 Unknown Rx levoFLOXacin [Levaquin TAB] 500 mg PO QDAY #7 tablet 06/28/18 Unknown Rx Ondansetron [Zofran Odt] 4 mg PO Q8HR PRN #20 tab.rapdis 08/02/18 Unknown Rx chlordiazePOXIDE [Librium] 25 mg PO Q6H PRN #15 capsule 08/02/18 Unknown Rx ED Physical Exam - General Limitations: No Limitations General appearance: alert, in no apparent distress - Head Head exam: Present: atraumatic, normocephalic - Eye Eye exam: Present: normal appearance, EOMI. Absent: nystagmus - ENT ENT exam: Present: normal exam, normal orophraynx, mucous membranes moist, normal external ear exam - Neck Neck exam: Present: normal inspection, full ROM. Absent: tenderness, meningismus - Respiratory Respiratory exam: Present: normal lung sounds bilaterally. Absent: respiratory distress - Cardiovascular Cardiovascular Exam: Present: regular rate, normal rhythm, normal heart sounds. Absent: bradycardia, tachycardia, irregular rhythm, systolic murmur, diastolic murmur, rubs, gallop - GI/Abdominal GI/Abdominal exam: Present: soft, normal bowel sounds. Absent: distended, tenderness, guarding, rebound, rigid, pulsatile mass - Rectal Rectal exam: Present: deferred - Extremities Exam Extremities exam: Present: normal inspection, full ROM, normal capillary refill , other (2+ pulses noted in the bilateral upper, lower extremities. Compartments soft. No long bony tenderness. The pelvis is stable.). Absent: tenderness, pedal edema, joint swelling, calf tenderness - Back Exam Back exam: Present: normal inspection, full ROM, paraspinal tenderness. Absent : vertebral tenderness - Neurological Exam Neurological exam: Present: alert, oriented X3, CN II-XII intact, normal gait, other (Extraocular movements intact. Tongue midline. No facial droop. Facial sensation intact to light touch in the V1, V2, V3 distribution bilaterally. 5 and 5 strength in 4 extremities.. Sensation is intact to light touch in 4 extremities.). Absent: motor sensory deficit - Psychiatric Psychiatric exam: Absent: homicidal ideation, suicidal ideation - Skin Skin exam: Present: warm, dry, intact, normal color. Absent: rash ED Course Vital Signs 08/02/18 11:22 Temperature 98.7 F Pulse Rate 92 H Respiratory 20 Rate Blood Pressure 109/76 O2 Sat by Pulse 96 Oximetry - Reevaluation(s) Reevaluation #1: 08/02/18 12:45 Differential diagnosis, including but not limited to: GERD, gastritis, alcohol dependence, medical clearance for detox, polysubstance dependence Assessment and plan: 57-year-old gentleman with a primary request for detox. He is afebrile with reassuring vital signs, clinically sober, walks with a steady gait, with a GCS of 15, with an NIH score of 0. He does not appear to be in immediate medical emergency at this time, and he does not meet 1013 criteria. He will be seen by the psychiatry team who will provide him with outpatient resources, and patient will be discharged with as needed Zofran and clonidine for symptoms of withdrawal. ED Medical Decision Making - Lab Data Result diagrams: 08/02/18 11:40 08/02/18 11:40 Critical care attestation.: If time is entered above; I have spent that time in minutes in the direct care of this critically ill patient, excluding procedure time. ED Disposition Clinical Impression: Substance abuse Disposition: DC-01 TO HOME OR SELFCARE Is pt being admited?: No Does the pt Need Aspirin: No Condition: Good Additional Instructions: Take Librium as needed for symptoms of alcohol withdrawal. Take Zofran as needed for nausea, vomiting. All wall with a primary care doctor or substance abuse clinic/facilitate as soon as possible for further outpatient evaluation and management. Do not combine Librium with alcohol, Percocet, sedating medications. Return to the ER right away with new pain, worsened pain, migration of pain, projectile vomiting, change in mental status, confusion, inability to tolerate liquid feeds. Referrals: [facility] [Provider Group] - 3-5 Days [facility] [Outside] - 3-5 Days
[2018-08-02 12:32] LABS: Bilirubin,Urine NEG (Negative); Blood,Urine MOD (Negative); Color,Urine Yellow (Yellow); Hyaline Casts,Urine 1 /LPF; Mucus,Urine 2+ /HPF; Protein,Urine <15 mg/dL mg/dL (Negative); Urobilinogen,Urine < 2.0 mg/dL (<2.0)
[2018-08-02 12:40] LABS: Amphetamine Screen,Urine PRESUMPTIVE NEGATIVE; Benzodiazepines Screen,Urine PRESUMPTIVE NEGATIVE; Methadone Screen,Urine PRESUMPTIVE NEGATIVE; Opiate Screen,Urine PRESUMPTIVE NEGATIVE
[2018-08-02 13:06] LABS: Cannabinoid Screen,Urine PRESUMPTIVE POSITIVE; Cocaine Screen,Urine PRESUMPTIVE POSITIVE
[2018-08-02 15:06] VITALS: BP 110/80
== END 2018-08-02 14:55 | disposition home or self-care (01) ==
LOC: ED 11:17
DX: F19.10 Other psychoactive substance abuse, uncomplicated (principal); K21.9 Gastro-esophageal reflux disease without esophagitis; F32.9 Major depressive disorder, single episode, unspecified; F41.9 Anxiety disorder, unspecified; F17.200 Nicotine dependence, unspecified, uncomplicated; F12.10 Cannabis abuse, uncomplicated; F14.10 Cocaine abuse, uncomplicated; Z79.899 Other long term (current) drug therapy
CPT/HCPCS: 36415; 80048; 80307; 81001; 82550; 83735; 85025; 99284; G0480; 80320; Q0162

== ENCOUNTER 2018-08-15 16:07 | Emergency (ER) | payer MEDICARE ==
[2018-08-15 17:58] LABS: Basophils % (Auto) 0.5 % (0.0-1.8); Eosinophils % (Auto) 0.9 % (0.0-4.3); Hemoglobin 13.9 gm/dl (11.8-15.2); Lymphocytes # (Auto) 1.8 K/mm3 (1.2-5.4); Lymphocytes % (Auto) 36.1 % (13.4-35.0); Mean Corpuscular HGB Conc 33 % (32-34); Mean Corpuscular Hemoglobin 30 pg (28-32); Mean Corpuscular Volume 93 fl (84-94); Monocytes # (Auto) 0.4 K/mm3 (0.0-0.8); Monocytes % (Auto) 7.9 % (0.0-7.3); Platelet Count 238 K/mm3 (140-440); Red Blood Count 4.61 M/mm3 (3.65-5.03); Red Cell Distribution Width 15.4 % (13.2-15.2)
[2018-08-15 18:13] LABS: Alanine Aminotransferase 7 units/L (7-56); Albumin 4.5 g/dL (3.9-5); BUN/Creatinine Ratio 13; Blood Urea Nitrogen 10 mg/dL (9-20); Calcium 8.9 mg/dL (8.4-10.2); Hemolysis Index 14
--- NOTE | 2018-08-15 18:22 | Cat Scan Report ---
FINAL REPORT EXAM: CT HEAD/BRAIN WO CON HISTORY: headache x 7 days TECHNIQUE: CT head without contrast PRIORS: None. FINDINGS: No acute intra-axial or extra-axial hemorrhage is identified. There is no evidence of midline shift or mass effect. The ventricles and sulci are within normal limits. Willis-white matter differentiation is intact. No acute parenchymal abnormalities seen. Bony calvarium is grossly intact. Visualized portions of the mastoids and paranasal sinuses are unremarkable. IMPRESSION: Negative CT head
[2018-08-15] MEDS ORDERED: MOTRIN PO ONE (22:06)
[2018-08-15 22:29] VITALS: BP 156/67
--- NOTE | 2018-08-15 22:36 | Emergency Department Report ---
HPI - General Chief Complaint: Headache Time Seen by Provider: 08/15/18 22:06 - HPI HPI: 57-year-old male presents to the emergency department with a complaint of a right sided headache that has been going on intermittently over the past week. He says it is a dull pain, about a 4 out of 10. He denies any head trauma. He denies any vision change, slurred speech or any neurological deficits. He has a past medical history includes arthritis, GERD, depression and some substance abuse history. He is currently getting treatment at [facility]. When he mentioned his headache to them he was told to come to the emergency department for further evaluation. ED Past Medical Hx - Past Medical History Hx Hypertension: No Hx Congestive Heart Failure: No Hx Diabetes: No Hx GERD: Yes Hx Arthritis: Yes Hx Seizures: No Hx Psychiatric Treatment: Yes (Depression, ETOH/Drug rehab, anxiety) Hx Asthma: No Hx COPD: No Additional medical history: depression, drug/etoh rehab, anxiety - Surgical History Additional Surgical History: back surgery, 2 hernia surgeries, neck surgery. RIGHT SHOULDER SURGERY, left foot surgery - Social History Smoking Status: Never Smoker Substance Use Type: None - Medications Home Medications: Home Medications Medication Instructions Recorded Confirmed Last Taken Type Gabapentin [Neurontin] 400 mg PO QHS 09/30/15 06/23/18 Unknown History HYDROcodone/APAP 10-325 [[place] 1 each PO Q6HR PRN #10 tablet 09/30/15 06/23/18 Unknown Rx 10-325 mg TAB] Triamcinolone 0.1% [Kenalog 0.1% 1 applic TP TID #1 tube 09/06/17 06/23/18 Unknown Rx CREAM] hydrOXYzine HCl [Hydroxyzine HCl] 25 mg PO BID #10 tablet 09/06/17 06/23/18 Unknown Rx levoFLOXacin [Levaquin TAB] 500 mg PO QDAY #7 tablet 06/28/18 Unknown Rx Ondansetron [Zofran Odt] 4 mg PO Q8HR PRN #20 tab.rapdis 08/02/18 Unknown Rx chlordiazePOXIDE [Librium] 25 mg PO Q6H PRN #15 capsule 08/02/18 Unknown Rx ED Review of Systems ROS: Stated complaint: HEADACHE Other details as noted in HPI Comment: All other systems reviewed and negative Constitutional: denies: chills, fever Eyes: denies: eye pain, eye discharge, vision change ENT: denies: ear pain, throat pain Respiratory: denies: cough, shortness of breath, wheezing Cardiovascular: denies: chest pain, palpitations Gastrointestinal: denies: abdominal pain, nausea, diarrhea Genitourinary: denies: urgency, dysuria Musculoskeletal: denies: back pain, joint swelling, arthralgia Skin: denies: rash, lesions Neurological: headache. denies: weakness, numbness, paresthesias, confusion Physical Exam - Physical Exam Vital Signs: Vital Signs 08/15/18 08/15/18 16:54 22:27 Temperature 97.7 F Pulse Rate 71 55 L Respiratory 16 16 Rate Blood Pressure 116/76 Blood Pressure 156/67 [Left] O2 Sat by Pulse 99 99 Oximetry Physical Exam: GENERAL: The patient is well-developed well-nourished. HEENT: Normocephalic. Atraumatic. Patient has moist mucous membranes. EYES: Extraocular motions are intact. Pupils are equal and reactive to light bilaterally. NECK: Supple. Trachea is midline. CHEST/LUNGS: Clear to auscultation. There is no respiratory distress noted. HEART/CARDIOVASCULAR: Regular. There is no tachycardia. There is no gallop rub or murmur. ABDOMEN: Abdomen is soft, nontender. Patient has normal bowel sounds. There is no abdominal distention. SKIN: Skin is warm and dry. NEURO: The patient is awake, alert, and oriented. The patient is cooperative. The patient has no focal neurologic deficits. The patient has normal speech and gait. Cranial nerves II through XII grossly intact. No pronator drift. No dysmetria. MUSCULOSKELETAL: There is no tenderness or deformity. There is no limitation range of motion. There is no evidence of acute injury. ED Course Vital Signs 08/15/18 08/15/18 16:54 22:27 Temperature 97.7 F Pulse Rate 71 55 L Respiratory 16 16 Rate Blood Pressure 116/76 Blood Pressure 156/67 [Left] O2 Sat by Pulse 99 99 Oximetry ED Medical Decision Making - Lab Data Result diagrams: 08/15/18 17:07 08/15/18 17:07 - Radiology Data Radiology results: report reviewed EXAM: CT HEAD/BRAIN WO CON HISTORY: headache x 7 days TECHNIQUE: CT head without contrast PRIORS: None. FINDINGS: No acute intra-axial or extra-axial hemorrhage is identified. There is no evidence of midline shift or mass effect. The ventricles and sulci are within normal limits. Willis-white matter differentiation is intact. No acute parenchymal abnormalities seen. Bony calvarium is grossly intact. Visualized portions of the mastoids and paranasal sinuses are unremarkable. IMPRESSION: Negative CT head Transcribed By: MACAROI Dictated By: RAGHAV HDZ MD Electronically Authenticated By: RAGHAV HDZ MD Signed Date/Time: 08/15/18 1820 - Medical Decision Making Patient presents with a one-week history of intermittent right-sided headache. On examination he has no focal, motor or sensory deficits and his cranial nerves are intact. Patient was seen ambulatory in the emergency department and appeared stable. CT scan of the head did not show any bleed, shift, mass, ischemia or any other acute process. The patient did not want any IV placed or any other medications given other than some ibuprofen. He is continuously asking for discharge back to [facility]. Vital signs stable throughout his ED course. He was instructed to follow-up with a primary care physician as soon as he is able to do so and to return to the emergency Department with any worsening of his symptoms or any acute distress. - Differential Diagnosis tension headache, migraine, brain bleed, cluster headache Critical Care Time: No Critical care attestation.: If time is entered above; I have spent that time in minutes in the direct care of this critically ill patient, excluding procedure time. ED Disposition Clinical Impression: Headache Qualifiers: Headache type: unspecified Headache chronicity pattern: episodic headache Intractability: not intractable Qualified Code(s): R51 - Headache Disposition: DC-01 TO HOME OR SELFCARE Is pt being admited?: No Condition: Stable Instructions: Acute Headache (ED) Additional Instructions: Please follow up with a primary care physician as soon as possible. Return to the emergency Department with any worsening of her symptoms, development of any vision change, slurred speech or any neurological deficits, or with any acute distress. Referrals: PRIMARY CAREMD [Primary Care Provider] - [facility] Time of Disposition: 22:36
== END 2018-08-15 22:50 | disposition home or self-care (01) ==
LOC: ED 16:07
DX: R51 Headache (principal); K21.9 Gastro-esophageal reflux disease without esophagitis; M19.90 Unspecified osteoarthritis, unspecified site; F32.9 Major depressive disorder, single episode, unspecified; F41.9 Anxiety disorder, unspecified
CPT/HCPCS: 36415; 70450; 80053; 85025

== ENCOUNTER 2018-11-10 10:46 | Outpatient (CLI) | payer MEDICARE ==
--- NOTE | 2018-11-10 11:11 | XRay Report ---
LEFT HAND, 3 views: History: Pain in left hand. A marker has been placed lateral to the fifth metacarpal head. The bony architecture is intact. Bony alignment is normal. No soft tissue abnormalities are seen. The joint spaces appear preserved. IMPRESSION: Left hand within normal limits.
== END 2018-11-10 10:47 | disposition home or self-care (01) ==
LOC: XRAY 10:46
PROVIDERS: ATTEND Orthopaedic Surgery
DX: M79.642 Pain in left hand (principal); K21.9 Gastro-esophageal reflux disease without esophagitis; Z87.891 Personal history of nicotine dependence

== ENCOUNTER 2019-02-15 07:45 | Emergency (ER) | payer MEDICARE ==
[2019-02-15 08:19] LABS: Bilirubin,Urine NEG (Negative); Blood,Urine MOD (Negative); Color,Urine Yellow (Yellow); Mucus,Urine FEW /HPF
[2019-02-15 08:33] LABS: Amphetamine Screen,Urine PRESUMPTIVE NEGATIVE; Benzodiazepines Screen,Urine PRESUMPTIVE NEGATIVE; Cannabinoid Screen,Urine PRESUMPTIVE NEGATIVE; Methadone Screen,Urine PRESUMPTIVE NEGATIVE; Opiate Screen,Urine PRESUMPTIVE NEGATIVE
[2019-02-15 09:11] LABS: Cocaine Screen,Urine PRESUMPTIVE POSITIVE
--- NOTE | 2019-02-15 10:16 | Emergency Department Report ---
ED Psych HPI - General Chief Complaint: Medical Clearance Stated Complaint: DETOX Time Seen by Provider: 02/15/19 09:55 Source: patient Mode of arrival: Ambulatory - History of Present Illness Initial Comments: Patient is 58 years old male with history of depression, not sure if he has schizophrenia or bipolar. Patient presented to the ER complaining of suicidal ideation for the last 3 days by overdosing on medication. Patient stated that he is hearing voices also. Patient stated that he woke up from a dream stating that he was telling his . Patient stated that his been using cocaine and alcohol almost every day. MD Complaint: suicidal ideation, feels depressed -: days(s) Associated Psychiatric Symptoms: depression, suicidal ideation, auditory hallucinations History of same: Yes Context: recent alcohol abuse, recent drug abuse Associated Symptoms: denies other symptoms Treatments Prior to Arrival: none If Self Harm: admits thoughts of, has plan, intentional overdose - Related Data Home Medications Medication Instructions Recorded Confirmed Last Taken Gabapentin [Neurontin] 400 mg PO QHS 09/30/15 06/23/18 Unknown Previous Rx's Medication Instructions Recorded Last Taken Type HYDROcodone/APAP 10-325 [[place] 1 each PO Q6HR PRN #10 tablet 09/30/15 Unknown Rx 10-325 mg TAB] Triamcinolone 0.1% [Kenalog 0.1% 1 applic TP TID #1 tube 09/06/17 Unknown Rx CREAM] hydrOXYzine HCl [Hydroxyzine HCl] 25 mg PO BID #10 tablet 09/06/17 Unknown Rx levoFLOXacin [Levaquin TAB] 500 mg PO QDAY #7 tablet 06/28/18 Unknown Rx Ondansetron [Zofran Odt] 4 mg PO Q8HR PRN #20 tab.rapdis 08/02/18 Unknown Rx chlordiazePOXIDE [Librium] 25 mg PO Q6H PRN #15 capsule 08/02/18 Unknown Rx Allergies Allergy/AdvReac Type Severity Reaction Status Date / Time No Known Allergies Allergy Verified 02/15/19 07:53 ED Review of Systems ROS: Stated complaint: DETOX Other details as noted in HPI Comment: All other systems reviewed and negative Constitutional: denies: chills, fever Respiratory: denies: cough Gastrointestinal: denies: abdominal pain, nausea, vomiting, diarrhea, constipation, hematemesis, melena, hematochezia Musculoskeletal: denies: back pain Neurological: denies: headache, weakness, numbness, paresthesias, confusion, abnormal gait ED Past Medical Hx - Past Medical History Hx Hypertension: No Hx Congestive Heart Failure: No Hx Diabetes: No Hx GERD: Yes Hx Arthritis: Yes Hx Seizures: No Hx Psychiatric Treatment: Yes (Depression, ETOH/Drug rehab, anxiety) Hx Asthma: No Hx COPD: No Additional medical history: depression, drug/etoh rehab, anxiety - Surgical History Additional Surgical History: back surgery, 2 hernia surgeries, neck surgery. RIGHT SHOULDER SURGERY, left foot surgery - Social History Smoking Status: Current Every Day Smoker Substance Use Type: Alcohol, Cocaine - Medications Home Medications: Home Medications Medication Instructions Recorded Confirmed Last Taken Type Gabapentin [Neurontin] 400 mg PO QHS 09/30/15 06/23/18 Unknown History HYDROcodone/APAP 10-325 [[place] 1 each PO Q6HR PRN #10 tablet 09/30/15 06/23/18 Unknown Rx 10-325 mg TAB] Triamcinolone 0.1% [Kenalog 0.1% 1 applic TP TID #1 tube 09/06/17 06/23/18 Unknown Rx CREAM] hydrOXYzine HCl [Hydroxyzine HCl] 25 mg PO BID #10 tablet 09/06/17 06/23/18 Unknown Rx levoFLOXacin [Levaquin TAB] 500 mg PO QDAY #7 tablet 06/28/18 Unknown Rx Ondansetron [Zofran Odt] 4 mg PO Q8HR PRN #20 tab.rapdis 08/02/18 Unknown Rx chlordiazePOXIDE [Librium] 25 mg PO Q6H PRN #15 capsule 08/02/18 Unknown Rx ED Physical Exam - General Limitations: No Limitations General appearance: alert, in no apparent distress, other (depressed) - Head Head exam: Present: atraumatic, normocephalic, normal inspection - Eye Eye exam: Present: normal appearance, PERRL - ENT ENT exam: Present: normal exam, normal orophraynx, mucous membranes moist - Neck Neck exam: Present: normal inspection, full ROM. Absent: tenderness, meningismus, lymphadenopathy, thyromegaly - Respiratory Respiratory exam: Present: normal lung sounds bilaterally - Cardiovascular Cardiovascular Exam: Present: regular rate, normal rhythm, normal heart sounds - GI/Abdominal GI/Abdominal exam: Present: soft, normal bowel sounds. Absent: distended, tenderness, guarding, rebound, rigid, organomegaly, mass, bruit, pulsatile mass, hernia - Back Exam Back exam: Present: normal inspection, full ROM. Absent: CVA tenderness (R), CVA tenderness (L), muscle spasm, paraspinal tenderness, vertebral tenderness - Neurological Exam Neurological exam: Present: alert, oriented X3, CN II-XII intact, normal gait - Psychiatric Psychiatric exam: Present: depressed, suicidal ideation. Absent: agitated, anxious, flat affect, manic, homicidal ideation - Skin Skin exam: Present: warm, intact, normal color ED Course Vital Signs 02/15/19 07:53 Temperature 98.6 F Pulse Rate 109 H Respiratory 16 Rate Blood Pressure 150/93 O2 Sat by Pulse 95 Oximetry Critical care attestation.: If time is entered above; I have spent that time in minutes in the direct care of this critically ill patient, excluding procedure time. ED Disposition Clinical Impression: Substance abuse, Suicidal ideation Disposition: DC/TX-65 PSY HOSP/PSY UNIT Is pt being admited?: No Condition: Stable Referrals: PRIMARY CARE, [Primary Care Provider] - 3-5 Days
[2019-02-15 10:57] LABS: Basophils % (Auto) 0.4 % (0.0-1.8); Eosinophils % (Auto) 0.1 % (0.0-4.3); Hemoglobin 14.4 gm/dl (11.8-15.2); Lymphocytes # (Auto) 1.3 K/mm3 (1.2-5.4); Mean Corpuscular HGB Conc 33 % (32-34); Mean Corpuscular Volume 91 fl (84-94); Monocytes # (Auto) 0.4 K/mm3 (0.0-0.8); Monocytes % (Auto) 6.7 % (0.0-7.3); Platelet Count 220 K/mm3 (140-440); Red Blood Count 4.83 M/mm3 (3.65-5.03); Red Cell Distribution Width 15.5 % (13.2-15.2)
[2019-02-15 11:04] LABS: BUN/Creatinine Ratio 13; Blood Urea Nitrogen 12 mg/dL (9-20); Calcium 9.1 mg/dL (8.4-10.2); Hemolysis Index 7
--- NOTE | 2019-02-16 11:59 | Consultation ---
History of Present Illness - Reason for Consult Consult date: 02/16/19 Reason for consult: Mental Health Evaluation Requesting physician: JIA KOHLER - Chief Complaint Chief complaint: "I don't know what to do" - History of Present Psychiatric Illness 58 y.o. AA male who presented to the ER for SI's. Today the patient is calm and cooperative during the assessment. He stated that he is having some family issues and using cocaine more frequently. He stated that his alcohol intake has increased also. He stated that he is self medicating with substances because of the stressors he is experiencing. He stated that he had thoughts of suicide for days prior to coming to the ER. He would not confirm or deny SI's when asked. He denies any previous suicide attempts in the past. He stated that his priority is staying off "drugs." He rate his depression 6/10, with 10 being the worse. He denies HI's and AVH's. He denies a poor appetite, but acknowledged that his sleep have been an issue (can't stay sleep). Medications and Allergies Allergies Allergy/AdvReac Type Severity Reaction Status Date / Time No Known Allergies Allergy Verified 02/15/19 07:53 Home Medications Medication Instructions Recorded Confirmed Last Taken Type No Known Home Medications [No 02/15/19 02/15/19 Unknown History Reported Home Medications] Past psychiatric history - Past Medical History Past Medical History: GERD Past Surgical History: No surgical history - past Psychiatric treatment and history psychiatric treatment history: Hx of substance abuse. Denies a fam psy hx. - Social History Social history: other (Homeless) Mental Status Exam - Vital signs Last Vital Signs Temp 97.8 F 02/16/19 08:39 Pulse 83 02/16/19 08:39 Resp 17 02/16/19 08:39 BP 115/88 02/16/19 08:39 Pulse Ox 98 02/16/19 08:39 - Exam Narrative exam: MSE: Appearance: calm, cooperative Behavior: regular eye contact Speech: regular rate and tone Mood: "depressed'" Affect: congruent to mood Thought Process: circumstantial Thought Content: denies HI's and AVH's Motor Activity: sitting up in bed Cognition: A/O x 3 Insight: fair Judgment: variable Results Result Diagrams: 02/15/19 10:27 02/15/19 10:27 All other labs normal. Assessment and Plan Assessment and plan: Impression: MDD, Severe Type. Substance Use DO (cocaine). Hx of Alcohol Abuse per the patient. Today the patient is calm and cooperative during the assessment. No acute withdrawals noted (etoh). DDx: Substance Induced Mood DO Recommendation/Plan: Continue 1013 and start Remeron 15 mg PO HS for depression. Discussed possible suicidality/medication induced malcolm with the patient reference Remeron. Dispo: The patient was referred to inpatient psy services. Will staff with Dr Refugio Chaidez.
[2019-02-16 16:28] VITALS: BP 137/94
[2019-02-16] MEDS ORDERED: REMERON PO SCH (22:00)
== END 2019-02-16 18:50 ==
LOC: ED 07:45 → EEVIPCON 07:45 → ED 02-16 18:50
DX: F32.9 Major depressive disorder, single episode, unspecified (principal); F41.9 Anxiety disorder, unspecified; F14.10 Cocaine abuse, uncomplicated; F17.200 Nicotine dependence, unspecified, uncomplicated; K21.9 Gastro-esophageal reflux disease without esophagitis; M19.90 Unspecified osteoarthritis, unspecified site; F10.10 Alcohol abuse, uncomplicated; Z98.890 Other specified postprocedural states
CPT/HCPCS: 36415; 80048; 80307; 81001; 85025; 99285; G0480; 80320

== ENCOUNTER 2021-05-27 17:45 | Emergency (ER) | payer MEDICARE ==
[2021-05-27 18:31] VITALS: BP 138/78
== END 2021-05-28 02:32 | disposition left against medical advice (07) ==
LOC: ED 17:45
DX: R51.9 Headache, unspecified (principal); Z53.21 Procedure and treatment not carried out due to patient leaving prior to being seen by health care provider